=== PATIENT | female | born 1940 | race African-American/Black ===

== ENCOUNTER 2024-07-14 15:54 | Inpatient (IN) | payer MEDICARE, OTHER ==
[~2024-07-14] VITALS: Ht 160 cm; Wt 75.9 kg
[2024-07-14 17:08] LABS: HEMATOCRIT. 42.5 % (36.0-48.0); HEMOGLOBIN. 13.9 g/dL (12.0-16.0); LYMPHOCYTES % 31.5 % (20.0-50.0); MEAN CORPUSCULAR HEMOGLOBIN 29.5 pg (28.0-32.0); MEAN CORPUSCULAR HGB CONC 32.6 g/dL (31.0-37.0); MEAN CORPUSCULAR VOLUME 90.5 fL (81.0-99.0); MONOCYTES % 7.8 % (2.0-8.0); NEUTROPHILS % 57.7 % (40.0-76.0); PLATELET 336 x1000/uL (130-400); RED CELL DISTRIBUTION WIDTH 13.2 % (11.6-14.6)
[2024-07-14 17:15] LABS: CHLORIDE 107 mEq/L (98-107); POTASSIUM 3.7 mEq/L (3.5-5.1); SODIUM 144 mEq/L (136-145)
[2024-07-14 17:16] LABS: CALCIUM 9.5 mg/dL (8.7-10.4); CARBON DIOXIDE 28 mEq/L (21-32)
[2024-07-14 17:19] LABS: PARTIAL THROMBOPLASTIN TIME 28.5 sec (23.4-31.0); PROTHROMBIN TIME 10.8 sec (9.6-11.0)
[2024-07-14 17:21] LABS: CREATININE 0.8 mg/dL (0.6-1.0); GLUCOSE 109 mg/dL (70-105); UREA NITROGEN BLOOD 8 mg/dL (9-23)
[2024-07-14 17:22] LABS: TROPONIN I HIGH SENSITIVITY 4 ng/L (3.0-34)
[2024-07-14] MEDS: ASPIRIN 81MG TABLET PO ONE (19:32)
[2024-07-14 19:36] LABS: TROPONIN I HIGH SENSITIVITY 4 ng/L (3.0-34)
[2024-07-14] MEDS ORDERED: ACETAMINOPHEN 325MG TABLET PO PRN (22:00)
[2024-07-14] MEDS ORDERED: DOCUSATE SODIUM 100MG CAPSULE PO PRN (22:00)
[2024-07-14] MEDS ORDERED: MAGNESIUM/ALUMINUM HYDROXIDE/SIMETHICONE 30ML UDC PO PRN (22:00)
[2024-07-14] MEDS ORDERED: CLONIDINE 0.1MG TABLET PO PRN (22:00)
[2024-07-14] MEDS ORDERED: IPRATROPIUM/ALBUTEROL 0.5-3(2.5)MG/3ML NEB HHN PRN (22:00)
[2024-07-14] MEDS ORDERED: ONDANSETRON HCL 4MG/2ML INJ IV PRN (22:00)
[2024-07-14] MEDS ORDERED: GUAIFENESIN 200MG/10ML SUGAR FREE UDC PO PRN (22:00)
[2024-07-14] MEDS: ENOXAPARIN 80MG/0.8ML SYR SUBCUT ONE (22:02)
[2024-07-14] MEDS: AZITHROMYCIN 500 MG TABLET PO NR (22:33)
[2024-07-14] MEDS ORDERED: HYDROXYZINE 10MG TABLET PO PRN (22:45)
[2024-07-14] MEDS: BUDESONIDE 0.5MG/2ML NEB HHN SCH (23:54)
[2024-07-14] MEDS: IPRATROPIUM/ALBUTEROL 0.5-3(2.5)MG/3ML NEB HHN SCH (23:54)
[2024-07-14 23:57] VITALS: PULSE 78; RESP 18; O2SAT 96
[2024-07-15] VITALS (8 sets, daily range): BP systolic 114–144; BP diastolic 69–86; PULSE 56–88; RESP 16–21; TEMP 35.8–36.6; O2SAT 92–98
[2024-07-15] MEDS ORDERED: ALBU2SYR24 PO (01:06)
[2024-07-15] MEDS ORDERED: IOHEXOL-350 100 ML BOTTLE ONE (04:14)
[2024-07-15 06:11] LABS: CLARITY URINE CLEAR (CLEAR); COLOR URINE YELLOW (YELLOW); GLUCOSE URINE NEGATIVE (NEGATIVE); KETONES URINE NEGATIVE (NEGATIVE); LEUKOCYTE ESTERASE URINE NEGATIVE (NEGATIVE); NITRITE URINE NEGATIVE (NEGATIVE); OCCULT BLOOD URINE NEGATIVE (NEGATIVE); PH URINE 5.5 (4.5-8.0); PROTEIN URINE TRACE (NEGATIVE); SPECIFIC GRAVITY URINE 1.097 (1.005-1.030); UROBILINOGEN URINE 0.2 E.U./dL (0.2-1.0)
[2024-07-15 06:18] LABS: *AMPHETAMINES SCREEN URINE NEGATIVE (NEGATIVE); *BARBITURATES SCREEN URINE NEGATIVE (NEGATIVE); *BENZODIAZEPINES SCREEN URINE NEGATIVE (NEGATIVE); *COCAINE SCREEN URINE NEGATIVE (NEGATIVE); METHADONE URINE SCREEN NEGATIVE (NEGATIVE); OPIATES URINE SCREEN NEGATIVE (NEGATIVE); PHENCYCLIDINE URINE SCREEN NEGATIVE (NEGATIVE)
[2024-07-15 06:19] LABS: CANNABINOID URINE SCREEN NEGATIVE (NEGATIVE); ECSTASY MDMA SCREEN URINE NEGATIVE (NEGATIVE)
[2024-07-15 06:27] LABS: BASOPHILS % 0.9 % (0.0-2.0); EOSINOPHILS % 2.8 % (0.0-5.0); HEMATOCRIT. 42.2 % (36.0-48.0); HEMOGLOBIN. 13.7 g/dL (12.0-16.0); LYMPHOCYTES % 33.5 % (20.0-50.0); MEAN CORPUSCULAR HEMOGLOBIN 29.7 pg (28.0-32.0); MEAN CORPUSCULAR HGB CONC 32.6 g/dL (31.0-37.0); MEAN CORPUSCULAR VOLUME 91.3 fL (81.0-99.0); MEAN PLATELET VOLUME 8.5 fl (7.4-10.4); MONOCYTES % 5.5 % (2.0-8.0); NEUTROPHILS % 57.3 % (40.0-76.0); PLATELET 284 x1000/uL (130-400); RED BLOOD CELL COUNT 4.62 mill/uL (4.2-5.4); RED CELL DISTRIBUTION WIDTH 13.1 % (11.6-14.6); WHITE BLOOD COUNT 6.8 x1000/uL (4.5-11.0)
[2024-07-15 06:39] LABS: CHLORIDE 106 mEq/L (98-107); POTASSIUM 3.5 mEq/L (3.5-5.1); SODIUM 141 mEq/L (136-145)
[2024-07-15 06:40] LABS: CALCIUM 9.1 mg/dL (8.7-10.4); CARBON DIOXIDE 26 mEq/L (21-32)
[2024-07-15 06:43] LABS: TROPONIN I HIGH SENSITIVITY 4 ng/L (3.0-34)
[2024-07-15 06:45] LABS: CREATININE 0.7 mg/dL (0.6-1.0); GLUCOSE 86 mg/dL (70-105); TRIGLYCERIDE 108 mg/dL (0-150); UREA NITROGEN BLOOD 11 mg/dL (9-23)
[2024-07-15 06:46] LABS: LDL CHOLESTEROL 92 mg/dL (5-100); PHOSPHORUS 3.6 mg/dL (2.5-4.9)
[2024-07-15 06:47] LABS: CHOLESTEROL 148 mg/dL (<200); HDL CHOLESTEROL 42 mg/dL (>65)
[2024-07-15 06:48] LABS: T4 FREE 1.11 ng/dL (0.89-1.76); THYROID STIMULATING HORMONE 4.29 uIU/mL (0.55-4.78)
[2024-07-15 07:17] LABS: SQUAMOUS EPITHELIAL CELL URINE FEW /lpf (RARE/1+); WBC URINE 0-2 /hpf (0-2)
[2024-07-15 07:18] LABS: BACTERIA URINE NONE SEEN; RBC URINE 0-2 /hpf (0-2)
[2024-07-15 11:49] LABS: ALANINE AMINOTRANSFERASE 12 IU/L (10-49); ASPARTATE AMINOTRANSFERASE 24 IU/L (<34); BILIRUBIN DIRECT 0.2 mg/dL (<=3.0)
[2024-07-15 11:50] LABS: BILIRUBIN TOTAL 0.7 mg/dL (0.1-1.0); PROTEIN TOTAL 6.8 g/dL (6.0-8.3)
[2024-07-15] MEDS: AZITHROMYCIN 250 MG TABLET PO SCH (12:05)
[2024-07-15] MEDS: AMLODIPINE 5MG TABLET PO SCH (12:05)
[2024-07-15] MEDS: PANTOPRAZOLE SODIUM 40 MG/VIAL IV SCH (12:06)
[2024-07-15 12:42] LABS: HEPATITIS B SURFACE ANTIGEN NEGATIVE (Negative)
[2024-07-15 13:02] LABS: HEPATITIS A AB IGM NEGATIVE (Negative)
[2024-07-15 13:03] LABS: HEPATITIS B CORE AB IGM NEGATIVE (Negative); HEPATITIS C AB NON REACTIVE (Neg) (Negative)
[2024-07-15 18:01] LABS: TROPONIN I HIGH SENSITIVITY < 4 ng/L (3.0-34)
[2024-07-15] MEDS: ENOXAPARIN 40MG/0.4ML SYR SUBCUT SCH (20:22)
[2024-07-15] MEDS: FLUTICASONE PROPIONATE 50MCG/SPRAY BOTTLE BOTHNSTRLS SCH (20:22)
[2024-07-15] MEDS: ACETAMINOPHEN 325MG TABLET PO PRN (20:25)
[2024-07-15] MEDS: IPRATROPIUM/ALBUTEROL 0.5-3(2.5)MG/3ML NEB HHN SCH (20:40)
[2024-07-15] MEDS ORDERED: SALMETEROL 50 MCG/INH 28 BLIST DISKUS INHR ORI SCH (21:00)
[2024-07-16] VITALS (8 sets, daily range): BP systolic 100–125; BP diastolic 54–65; PULSE 57–88; RESP 16–20; TEMP 36.1–36.7; O2SAT 93–98
[2024-07-16 07:38] LABS: CARBON DIOXIDE 26 mEq/L (21-32); CHLORIDE 105 mEq/L (98-107); POTASSIUM 3.7 mEq/L (3.5-5.1); SODIUM 141 mEq/L (136-145)
[2024-07-16 07:39] LABS: CALCIUM 8.9 mg/dL (8.7-10.4)
[2024-07-16 07:44] LABS: CREATININE 0.7 mg/dL (0.6-1.0); GLUCOSE 82 mg/dL (70-105)
[2024-07-16 07:45] LABS: UREA NITROGEN BLOOD 10 mg/dL (9-23)
[2024-07-16 07:52] LABS: BASOPHILS % 0.8 % (0.0-2.0); HEMATOCRIT. 40.5 % (36.0-48.0); HEMOGLOBIN. 13.1 g/dL (12.0-16.0); LYMPHOCYTES % 32.4 % (20.0-50.0); MEAN CORPUSCULAR HEMOGLOBIN 29.5 pg (28.0-32.0); MEAN CORPUSCULAR HGB CONC 32.4 g/dL (31.0-37.0); MEAN PLATELET VOLUME 9.1 fl (7.4-10.4); MONOCYTES % 6.9 % (2.0-8.0); NEUTROPHILS % 55.9 % (40.0-76.0); PLATELET 284 x1000/uL (130-400); RED BLOOD CELL COUNT 4.46 mill/uL (4.2-5.4); RED CELL DISTRIBUTION WIDTH 13.1 % (11.6-14.6); WHITE BLOOD COUNT 6.6 x1000/uL (4.5-11.0)
[2024-07-16] MEDS: METHYLPREDNISOLONE SOD SUCC 40MG/ML (ACT-O-VIAL) IV SCH (09:30)
[2024-07-16] MEDS: METHYLPREDNISOLONE 4MG TABLET PO SCH (17:36)
[2024-07-16] MEDS: LOPERAMIDE HCL 2MG CAPSULE PO PRN (21:44)
[2024-07-17] VITALS: BP 116/67; PULSE 78; RESP 19; TEMP 35.9; O2SAT 95
[2024-07-17 04:00] VITALS: BP 135/90; PULSE 96; RESP 22; TEMP 36.7; O2SAT 97
[2024-07-17 05:30] VITALS: BP 118/59; PULSE 68; RESP 14; TEMP 36.6; O2SAT 97
[2024-07-17] MEDS: FAMOTIDINE 20MG/2ML VIAL IV SCH (08:20)
[2024-07-17 12:00] VITALS: BP 125/67; PULSE 61; RESP 18; TEMP 36.4; O2SAT 96
[2024-07-17] MEDS ORDERED: PRED5TAB48 PO (14:26)
[2024-07-17] MEDS ORDERED: FLUT1DIS3 INH (14:26)
[2024-07-17] MEDS ORDERED: AMLO5TAB88 PO (14:26)
[2024-07-17] MEDS ORDERED: AZIT250T12 PO (14:26)
[2024-07-17] MEDS ORDERED: ALBU18HF2 IH (14:29)
[2024-07-17 16:01] VITALS: BP 125/67; PULSE 61; TEMP 97.5; O2SAT 96
== END 2024-07-17 18:01 | disposition home or self-care (01) | DRG 192 ==
LOC: ER 15:54 → EDBEDREQ 18:54 → 8WST 20:58 → EDBEDREQTM 21:05 → EDBEDREQ 21:05 → 8EST 07-17 05:23
PROVIDERS: ADMIT Hospitalist; ATTEND Hospitalist
DX: J44.1 Chronic obstructive pulmonary disease with (acute) exacerbation (principal); I11.0 Hypertensive heart disease with heart failure; E66.811 Obesity, class 1; K44.9 Diaphragmatic hernia without obstruction or gangrene; E78.00 Pure hypercholesterolemia, unspecified; G47.00 Insomnia, unspecified; I50.9 Heart failure, unspecified; Z68.29 Body mass index [BMI] 29.0-29.9, adult; K80.20 Calculus of gallbladder without cholecystitis without obstruction; K76.9 Liver disease, unspecified; R91.1 Solitary pulmonary nodule; G89.4 Chronic pain syndrome; I27.20 Pulmonary hypertension, unspecified; Z20.822 Contact with and (suspected) exposure to COVID-19; F17.200 Nicotine dependence, unspecified, uncomplicated; Z79.51 Long term (current) use of inhaled steroids
CPT/HCPCS: 36415; 71045; 71275; 76700; 80048; 80061; 80076; 80305; 81003; 82105; 82378; 83036; 83735; 83880; 84100; 84439; 84443; 84484; 85025; 85379; 86705; 86709; 87340; 87426; 93005; 93306; 93970; 94070; 94640; 94664; 97162; 97166; 98960; 99285; J1650; J2470; J2919; J3490; J7509; Q9967